=== PATIENT | male | born 1975 | race Caucasian/White ===

== ENCOUNTER 2021-03-31 20:47 | Emergency (ER) | payer BC ==
[~2021-03-31] VITALS: Ht 185.4 cm; Wt 77.1 kg
--- NOTE | 2021-03-31 21:46 | NUR ---
ERMD INTO EVAL PATIENT.
--- NOTE | 2021-03-31 22:03 | NUR ---
Patient discharged to home in stable condition. Written and verbal after care instructions given. Patient verbalizes understanding of instructions. Stressed follow up or return to ER for worsening s/s.
== END 2021-03-31 22:06 | disposition home or self-care (01) ==
LOC: ER 20:49
DX: M67.432 Ganglion, left wrist (principal); E78.5 Hyperlipidemia, unspecified; Z88.0 Allergy status to penicillin; Z91.040 Latex allergy status
CPT/HCPCS: A4663